=== PATIENT | male | born 1980 | race Caucasian/White ===

== ENCOUNTER 2021-11-05 12:20 | Emergency (ER) | payer OTHER ==
[2021-11-05 12:31] VITALS: BP 156/78
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
--- NOTE | 2021-11-05 13:09 | CT Report ---
PROCEDURE: CERVICAL SPINE WO INDICATIONS: neck injury TECHNIQUE: Noncontrast 3 mm thick sections acquired from the skull base to the T4 level. Sagittal and coronal r eformats were then constructed. For radiation dose reduction, the following was used: automated exp osure control, adjustment of mA and/or kV according to patient size. COMPARISON: None. FINDINGS: Image quality: Excellent. Bones: No acute fractures or dislocations. Visualized superior ribs are intact. Soft tissues: Prevertebral soft tissues are normal in thickness. No paravertebral hematomas. No ap ical pneumothoraces. IMPRESSION: No acute cervical spine fracture or subluxation. Reviewed by: Iron Dooley MD on 11/05/2021 1:08 PM PDT Approved by: Iron Dooley MD on 11/05/2021 1:08 PM PDT Station ID: [id number]
== END 2021-11-05 13:21 | disposition home or self-care (01) ==
LOC: ED 12:20
DX: S00.81XA Abrasion of other part of head, initial encounter (principal); S00.01XA Abrasion of scalp, initial encounter; S16.1XXA Strain of muscle, fascia and tendon at neck level, initial encounter; V18.4XXA Pedal cycle driver injured in noncollision transport accident in traffic accident, initial encounter; Y93.55 Activity, bike riding
CPT/HCPCS: 99282; 99284